=== PATIENT | male | born 1950 | race Caucasian/White ===

== ENCOUNTER 2024-12-21 07:29 | Outpatient (CLI) | payer MEDICARE ==
[~2024-12-21 07:29] MED LIST: ASPI81TA53 PO; ATOR20TA66 PO; CYCL-1 PO; GABA300C PO; HYDR-3972 PO; LISI5TAB22 PO; METO-395 PO; TICA90TA PO
--- NOTE | 2024-12-21 08:30 | RADIOLOGY REPORT ---
EXAM: CT CT CHEST HISTORY: ENCNTR SCREEN FOR MALIGNANT NEOPLASM OF RESPIRATORY ORGANS COMPARISON: None TECHNIQUE: Helical CT images of the chest were performed without contrast. Sagittal and coronal refor matted images were obtained. This CT exam was performed using one or more of the following dose reduc tion techniques: Automated exposure control, adjustment of the mA and/or kV according to patient size , or use of iterative reconstruction technique. Radiation Dose: CT Dose: CTDI volume is 11.81 mGy. Do se-length product is 462.98 mGy*cm FINDINGS: No pneumothorax, pulmonary edema, pleural effusions, or consolidative infiltrates. There is [id number] central peribronchial thickening. There is a right lower lobe 4.5 mm noncalcified p ulmonary nodule (image 54, series 3). There is a 4 mm left upper lobe noncalcified pulmonary nodule ( image 21, series 2). There is a pleural-based left lower lobe noncalcified pulmonary nodule (image 55 , series 2). There is moderate centrilobular emphysema. No suspicious mediastinal or axillary adenopa thy. The heart is not enlarged. There are coronary artery calcifications. Probable right coronary ar kathy stent. No thoracic aortic aneurysm. There is borderline ectasia of the central pulmonary arterie s. The esophagus is mildly fluid distended. No fractures are identified about the bony thorax. There is [id number] thoracic degenerative disc disease. There are postoperative changes of cholecyste ctomy. IMPRESSION: 1. Multiple lateral noncalcified pulmonary nodules measuring 4-4.5 mm as detailed above. Recommend f ollow-up according to Fleischner society guidelines. 2. Emphysema and reactive airways disease. 3. Coronary artery disease and probable right coronary artery stent.
== END 2024-12-21 23:59 | disposition home or self-care (01) ==
LOC: 64 CT 07:29
PROVIDERS: ATTEND Nurse Practitioner
DX: J43.2 Centrilobular emphysema (principal); J45.909 Unspecified asthma, uncomplicated; R91.8 Other nonspecific abnormal finding of lung field; I25.10 Atherosclerotic heart disease of native coronary artery without angina pectoris; J98.09 Other diseases of bronchus, not elsewhere classified; Z12.2 Encounter for screening for malignant neoplasm of respiratory organs; K22.89 Other specified disease of esophagus; M51.34 Other intervertebral disc degeneration, thoracic region; Z90.49 Acquired absence of other specified parts of digestive tract; F17.210 Nicotine dependence, cigarettes, uncomplicated
CPT/HCPCS: 71250